=== PATIENT | female | born 1955 | race American Indian/Alaskan Native ===

== ENCOUNTER 2021-08-08 14:48 | Emergency (ER) | payer MEDICARE ==
--- NOTE | 2021-08-08 15:13 | Emergency Department Report ---
HPI - General Chief Complaint: Neuro Symptoms/Deficit Time Seen by Provider: 08/08/21 14:57 - HPI HPI: Room 18 The patient is a 65-year-old female present with a chief complaint of right- sided weakness. The daughter states she last spoke with the patient at 10: 52 this morning and the patient sounded like her normal self just complaining of a slight headache. The daughter then states she received a telephone call from her neighbor at 12: 26 stating that the patient is having difficulty speaking and could not move her right side. EMS was called and reportedly arrived 1 hour later. Daughter states EMS arrived on scene and did a stroke exam and initially stated they did not find any signs. However at 1405 was again noted that the patient had difficulty speaking and right-sided weakness ED Past Medical Hx - Past Medical History Hx Hypertension: Yes - Surgical History Additional Surgical History: - Family History Family history: no significant - Social History Smoking Status: Never Smoker Substance Use Type: None (Denies illicit drug) ED Review of Systems ROS: Stated complaint: Other details as noted in HPI Constitutional: no symptoms reported Eyes: denies: eye pain ENT: denies: throat pain Respiratory: no symptoms reported Cardiovascular: denies: chest pain Endocrine: no symptoms reported Gastrointestinal: denies: abdominal pain Genitourinary: denies: dysuria Musculoskeletal: denies: back pain Neurological: headache, weakness, other (Dysarthria) Physical Exam - Physical Exam Physical Exam: GENERAL: The patient is well-developed well-nourished female lying on stretcher somewhat emotionally distraught. [] HEENT: Normocephalic. Atraumatic. Extraocular motions are intact. Patient has moist mucous membranes. NECK: Supple. Trachea midline CHEST/LUNGS: Clear to auscultation. There is no respiratory distress noted. HEART/CARDIOVASCULAR: Regular. There is no tachycardia. There is no gallop rub or murmur. ABDOMEN: Abdomen is soft, nontender. Patient has normal bowel sounds. There is no abdominal distention. SKIN: There is no rash. There is no edema. There is no diaphoresis. NEURO: The patient is awake, alert, and oriented. The patient is cooperative. Cranial nerves II through XII grossly intact with exception of left facial droop and left cranial nerve #11. The patient has mild dysarthria. Patient able to hold right upper extremity at 45 degree angle for 10-second count without drift. Patient left upper extremity drifts down to her body before 10-second count. Patient is able to hold her right lower extremity at 30 degree angle for 5- second count without drift. The patient is able to hold her left lower extremity at 30 degree angle for 5-second count with some drift but it does not fall completely to the bed. Normal sensation to light touch throughout. NIHSS = 4 MUSCULOSKELETAL: There is no evidence of acute injury. ED Course - Consultations Consultation #1: 08/08/21 15:45 Case discussed with [id number] not recommend TPA at this time as patient is out of 4.5-hour window. Awaiting CTA and admit for CVA work-up Consultation #2: 08/08/21 16:30 [facility] called 08/08/21 16:56 Case discussed with [place] physician (Dr Diaz)- we will arrange transfer to [facility] 08/08/21 17:31 Patient will be transferred to [facility] ED Medical Decision Making - Lab Data Result diagrams: 08/08/21 15:12 08/08/21 15:12 Laboratory Tests 08/08/21 08/08/21 08/08/21 15:12 15:12 15:12 WBC 3.9 L RBC 4.28 Hgb 11.8 Hct 37.1 MCV 87 MCH 28 MCHC 32 RDW 14.5 Plt Count 140 Lymph % (Auto) 10.4 L [place] % (Auto) 10.1 H Eos % (Auto) 0.5 Baso % (Auto) 0.6 Lymph # (Auto) 0.4 L [place] # (Auto) 0.4 Eos # (Auto) 0.0 Baso # (Auto) 0.0 Seg Neutrophils % 78.4 H Seg Neutrophils # 3.1 PT 15.2 H INR 1.08 APTT 28.9 Thrombin Time Sodium 134 L Potassium 3.3 L Chloride 98.2 Carbon Dioxide 23 Anion Gap 16 BUN 15 Creatinine 0.6 Estimated GFR > 60 BUN/Creatinine Ratio 25 Glucose 107 H Calcium 8.6 Troponin T < 0.010 08/08/21 15:12 WBC RBC Hgb Hct MCV MCH MCHC RDW Plt Count Lymph % (Auto) [place] % (Auto) Eos % (Auto) Baso % (Auto) Lymph # (Auto) [place] # (Auto) Eos # (Auto) Baso # (Auto) Seg Neutrophils % Seg Neutrophils # PT INR APTT Thrombin Time 18.6 Sodium Potassium Chloride Carbon Dioxide Anion Gap BUN Creatinine Estimated GFR BUN/Creatinine Ratio Glucose Calcium Troponin T - EKG Data -: EKG Interpreted by Me EKG shows normal: sinus rhythm Rate: normal - EKG Data When compared to previous EKG there are: previous EKG unavailable Interpretation: other (No ischemic changes seen) - Radiology Data Radiology results: report reviewed (CT head, CTA brain, CTA neck), image reviewed (CT head, CTA brain, CTA neck) [facility] [address] [place] [address] Cat Scan Report Signed Patient: SIDRA GANT MR#: [id number] : 1955 Acct:[id number] Age/Sex: 65 / F ADM Date: 08/08/21 Loc: ED Attending Dr: Ordering Physician: HARI SANTANA MD Date of Service: 08/08/21 Procedure(s): CT head/brain wo con Accession Number(s): [id number] cc: HARI SANTANA MD CT head/brain wo con INDICATION / CLINICAL INFORMATION: 65 years Female; CODE STROKE CALL [phone] neuro deficits <6hrs or sx present upon awakening. TECHNIQUE: Routine CT head without contrast. All CT scans at this location are performed using CT dose reduction for ALARA by means of automated exposure control. C OMPARISON: None. FINDINGS: BRAIN / INTRACRANIAL CONTENTS: The motion and positioning degrade the image quality. However, there is decreased attenuation projected along the inferior right frontal lobe including the operculum concerning for evolving infarct given the history and correlation would be n eeded. There is otherwise mild to moderate cerebral white matter disease most oblique involving the periventricular regions and most consistent with microvascular angiopathy. The ventricular system is within normal limits in size and configuration. There is no clear CT evidence of acute intracranial hemorrhage or significant mass effect. ORBITS: No significant abnormality of visualized orbits. SINUSES / MASTOIDS: There is prominent opacification within the right maxillary sinus at. Mild mucosal thickening is seen along the inferior left maxillary sinus. CRANIOCERVICAL JUNCTION: No significant abnormality. ADDITIONAL FINDINGS: None. IMPRESSION: 1. The study is limited by motion. However, there appears to be relative decreased attenuation along the right frontal lobe and operculum concerning for edema and evolving infarct given the history and correlation would be needed. 2. 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 3. There is sinus inflammatory disease with near complete opacification of the right maxillary sinus. The study was specified as code stroke and called emergently to Dr. Santana in the ER at 2:23 PM Central standard time. However, attempts were unsuccessful. Signer Name: Rafita Burnham MD Signed: 08/08/2021 3:25 PM Workstation Name: [id number] Transcribed By: MR Dictated By: Rafita Burnham MD Electronically Authenticated By: Rafita Burnham MD Signed Date/Time: 08/08/21 152 DD/ 15 TD/TT: Print Cancel CT angio head INDICATION / CLINICAL INFORMATION: 65 years Female; NEURO DEFICITS 100 ML OMNI 350 . TECHNIQUE: Thin cut axial images obtained through t he head during IV bolus contrast administration. Sagittal, coronal, and 3 plane MIP reconstructions performed by the technologist. NASCET type criteria used evaluate stenoses. Automated exposure control utilized for radiation reduction purposes. COMPARISON: None available. FINDINGS: INTERNAL CAROTID ARTERIES: There is no significant focal stenosis involving intracranial ICAs by NASCET criteria. 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 There is also relative hypoplasia of the basilar artery without significant focal stenosis. CEREBRAL ARTERIES: There is origin of the posterior cerebral arteries bilaterally. There is no significant stenosis involving anterior cerebral arteries. On the accompanying noncontrast CT, there was suggestion of relative decreased attenuation within the inferior right frontal lobe operculum concerning for edema and evolving infarct at. There is no evidence of significant stenosis or large vessel occlusion involving the middle cerebral arteries or adjacent segments. In correlation would be needed in this patient with history of unspecified "neuro deficits". ANEURYSM: None identified. ADDITIONAL FINDINGS: There is near complete opacification of the right maxillary sinus. IMPRESSION: On the earlier CTA head, there was suggestion of subtle edema involving the inferior right frontal lobe at. However, there is no clear evidence of large vessel occlusion involving the more proximal right MCA branches. There is developmental origin of the posterior cerebral arteries and hypoplasia of the vertebral basilar system as described. The study was specified as stat and dictated emergently at 2:28 PM Central standard time. Signer Name: Rafita Burnham MD Signed: 08/08/2021 2:31 PM Workstation Name: [id number] CT angio neck INDICATION / CLINICAL INFORMATION: 65 years Female; NEURO DEFICITS 100 ML OMNI 350. TECHNIQUE: Thin cut axial images obtained through the head during IV bolus contrast administration. Sagittal, coronal, and 3 plane MIP reconstructions performed by the technologist. NASCET type criteria used evaluate stenoses. All CT scans at this location are performed using CT dose reduction for ALARA by means of automated exposure control. . COMPARISON: None available. FINDINGS: ARCH: Normal left for CAROTID ARTERIES: The visualized common and internal carotid arteries are widely patent. VERTEBRAL ARTERIES: Slight right dominant vertebral system seen. The nondominant left vertebral artery largely terminates in the left PICA territory. ADDITIONAL FINDINGS: Moderate opacification of the ethmoid seen. Mild mucosal thickening seen in the left sphenoid sinus. There is near complete opacification of the right maxillary antrum with air-fluid level. Moderate mucosal thickening seen in the left maxillary antrum. Disc disease seen at C4-5 which encroaches upon the cervical cord. No definitive impingement. Mild foraminal narrowing bilaterally at C6-7, related uncinate hypertrophy. Disc space narrowing seen at this level as well. Prominent, calcified nodes are seen in the mediastinum. There may be some mildly prominent, noncalcified lymph nodes, as well. Please clinically correlate. IMPRESSION: No significant stenosis appreciated on this CTA of the neck. Signer Name: Jamal Richards MD, III Signed: 08/08/2021 3:17 PM Workstation Name: [id number] - Differential Diagnosis CVA Critical care attestation.: If time is entered above; I have spent that time in minutes in the direct care of this critically ill patient, excluding procedure time. ED Disposition Clinical Impression: CVA (cerebral vascular accident) Disposition: 51 HOSPICE/MEDICAL FACILITY Is pt being admited?: No Does the pt Need Aspirin: No Condition: Fair Referrals: PRIMARY CARE, [Primary Care Provider] - 3-5 Days Time of Disposition: 17:34 (Awaiting transport)
[2021-08-08 15:21] LABS: Basophils % (Auto) 0.6 % (0.0-1.8); Eosinophils % (Auto) 0.5 % (0.0-4.3); Hematocrit 37.1 % (30.3-42.9); Hemoglobin 11.8 gm/dl (10.1-14.3); Lymphocytes # (Auto) 0.4 K/mm3 (1.2-5.4); Lymphocytes % (Auto) 10.4 % (13.4-35.0); Mean Corpuscular HGB Conc 32 % (30-34); Mean Corpuscular Volume 87 fl (79-97); Monocytes # (Auto) 0.4 K/mm3 (0.0-0.8); Monocytes % (Auto) 10.1 % (0.0-7.3); Platelet Count 140 K/mm3 (140-440); Red Blood Count 4.28 M/mm3 (3.65-5.03); Red Cell Distribution Width 14.5 % (13.2-15.2)
--- NOTE | 2021-08-08 15:30 | Cat Scan Report ---
CT head/brain wo con INDICATION / CLINICAL INFORMATION: 65 years Female; CODE STROKE CALL [phone] neuro deficits <6hrs or sx present upon awakening. TECHNIQUE: Routine CT head without contrast. All CT scans at this location are performed using CT dos e reduction for ALARA by means of automated exposure control. COMPARISON: None. FINDINGS: BRAIN / INTRACRANIAL CONTENTS: The motion and positioning degrade the image quality. However, there i s decreased attenuation projected along the inferior right frontal lobe including the operculum chris rning for evolving infarct given the history and correlation would be needed. There is otherwise mild to moderate cerebral white matter disease most oblique involving the perivent ricular regions and most consistent with microvascular angiopathy. The ventricular system is within n ormal limits in size and configuration. There is no clear CT evidence of acute intracranial hemorrhag e or significant mass effect. ORBITS: No significant abnormality of visualized orbits. SINUSES / MASTOIDS: There is prominent opacification within the right maxillary sinus at. Mild mucosa l thickening is seen along the inferior left maxillary sinus. CRANIOCERVICAL JUNCTION: No significant abnormality. ADDITIONAL FINDINGS: None. IMPRESSION: 1. The study is limited by motion. However, there appears to be relative decreased attenuation along the right frontal lobe and operculum concerning for edema and evolving infarct given the history and correlation would be needed. 2. There is otherwise mild to moderate microvascular angiopathy without clear CT evidence of acute in tracranial hemorrhage. 3. There is sinus inflammatory disease with near complete opacification of the right maxillary sinus. The study was specified as code stroke and called emergently to Dr. Anglin in the ER at 2:23 PM Central standard time. However, attempts were unsuccessful. Signer Name: Rafita Burnham MD Signed: 08/08/2021 3:25 PM Workstation Name: [id number]
[2021-08-08 15:35] LABS: Blood Urea Nitrogen 15 mg/dL (7-17); Calcium 8.6 mg/dL (8.4-10.2); Hemolysis Index 11
--- NOTE | 2021-08-08 15:35 | Cat Scan Report ---
CT angio head INDICATION / CLINICAL INFORMATION: 65 years Female; NEURO DEFICITS 100 ML OMNI 350 . TECHNIQUE: Thin cut axial images obtained through the head during IV bolus contrast administration. S agittal, coronal, and 3 plane MIP reconstructions performed by the technologist. NASCET type criteria used evaluate stenoses. Automated exposure control utilized for radiation reduction purposes. COMPARISON: None available. FINDINGS: INTERNAL CAROTID ARTERIES: There is no significant focal stenosis involving intracranial ICAs by NASC ET criteria. 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 There is also relative hypoplasia of the basilar artery without significant focal stenosis. CEREBRAL ARTERIES: There is origin of the posterior cerebral arteries bilaterally. There is no significant stenosis involving anterior cerebral arteries. On the accompanying noncontrast CT, there was suggestion of relative decreased attenuation within the inferior right frontal lobe operculum concerning for edema and evolving infarct at. There is no evid ence of significant stenosis or large vessel occlusion involving the middle cerebral arteries or alex cent segments. In correlation would be needed in this patient with history of unspecified "neuro defi cits". ANEURYSM: None identified. ADDITIONAL FINDINGS: There is near complete opacification of the right maxillary sinus. IMPRESSION: On the earlier CTA head, there was suggestion of subtle edema involving the inferior right frontal lo be at. However, there is no clear evidence of large vessel occlusion involving the more proximal righ t MCA branches. There is developmental origin of the posterior cerebral arteries and hypoplasia of the vertebra l basilar system as described. The study was specified as stat and dictated emergently at 2:28 PM Central standard time. Signer Name: Rafita Burnham MD Signed: 08/08/2021 3:31 PM Workstation Name: [id number]
[2021-08-08 15:37] LABS: INR 1.08 (0.87-1.13); Partial Thromboplastin Time 28.9 Sec. (24.2-36.6)
[2021-08-08 15:44] LABS: BUN/Creatinine Ratio 25
[2021-08-08] MEDS ORDERED: ASPIRIN 325 MG TAB PO ONE (15:46)
--- NOTE | 2021-08-08 15:49 | Consultation ---
History of Present Illness Consult date: 08/08/21 Medications and Allergies Allergies Allergy/AdvReac Type Severity Reaction Status Date / Time No Known Allergies Allergy Unverified 08/08/21 14:50 Physical Examination - Vital Signs Vital Signs: Vital Signs Pulse Ox 100 08/08/21 15:16 Results - Laboratory Findings CBC and BMP: 08/08/21 15:12 08/08/21 15:12 Abnormal Lab Findings: Abnormal Labs 08/08/21 08/08/21 08/08/21 15:12 15:12 15:12 WBC 3.9 L Lymph % (Auto) 10.4 L [place] % (Auto) 10.1 H Lymph # (Auto) 0.4 L Seg Neutrophils % 78.4 H PT 15.2 H Sodium 134 L Potassium 3.3 L Glucose 107 H Assessment and Plan [facility] Consult Note # Demographics Consult Type: Acute Stroke Level 1 (0-4.5 hrs) Patient Location: Emergency Room First Name: Mayra Last Name: Paddy Date of : 1955 Age: 65 Gender: Female Facility: [facility] Time of Initial Page (Eastern Time): 08/08/2021, 14:39 Time of Return Call (Eastern Time): 08/08/2021, 14:40 # HPI History: 65 yo woman with complaints of dizziness, left arm wasn't working, she laid down and couldn't get up with whole left-sided weakness. Symptoms resolved then returned then resolved again. Symptoms firs noticed at 10:00 or 11:0 0am. Initial NIHSS on my evaluation was 0 however upon second evaluation her NIHSS was 3 for left facial droop, left-arm weakness, and neurology Last Known Normal: I have collected independent history specific to time last normal or last known well. We have collaborated with the provider and at this time, we have the most current timeline with the information that is available. # Scores Time of exam and NIHSS (Eastern Time): 08/08/2021, 15:14 Level of Consciousness 1a: [0] = Alert; keenly responsive LOC Questions 1b: [0] = Answers both questions correctly LOC Commands 1c: [0] = Performs both tasks correctly Best Gaze 2: [0] = Normal Visual 3: [0] = No visual loss Facial Palsy 4: [1] = Minor paralysis Motor Arm Left 5a: [1] = Drift Motor Arm Right 5b: [0] = No drift Motor Leg Left 6a: [0] = No drift Motor Leg Right 6b: [0] = No drift Limb Ataxia 7: [0] = Absent Sensory 8: [0] = Normal Best Language 9: [0] = No aphasia Dysarthria 10: [1] = [id number] dysarthria Extinction and Inattention 11: [0] = No abnormality NIHSS Total: 3 # Exam Vitals: vital signs reviewed SBP: 176 DBP: 132 # PMH-FH-SH Past Medical History: hypertension Sarcoidosis Social History: non-smoker non-drinker Medications: Prednisone, HCTZ Allergies: NKDA # Data Head CT: no bleed per radiologist read ? right frontal hypodensity # Assessment Impression: Ischemic Stroke (Acute) Left-sided weakness consistent with acute stroke. TPA considered but given onset at between 10:00-11:00 and hypodensity seen on head CT I would not recommend IV tpa. # Plan Thrombolytic/Intervention: NOT IV Thrombolysis or IA Intervention candidate Thrombolytic Exclusion: > 4.5 hours Intraarterial Exclusion: other CTA results pending, call back if abnormal Target Blood Pressure: SBP < 220 Labs: hemoglobin A1c lipid panel Imaging: (urgency: routine): MRI Brain without contrast Diagnostic Test: echo with bubble study Therapy/Evaluation: NPO until swallow evaluation PT/OT evaluation speech/swallow consultation Medication: aspirin 81 mg daily clopidogrel (Plavix) 75 mg daily aspirin 81 mg PLUS clopidogrel (Plavix) 75 mg for 21 days, then monotherapy therafter start statin with goal of LDL < 70 DVT Prophylaxis: SCD chemical DVT prophylaxis Other: LDL < 70 permissive hypertension telemetry monitoring I have discussed my recommendations with the referring provider Disposition: admit # Logistics Telemedicine: Interactive 2 way audio and visual telecommunication technology was utilized during this visit
--- NOTE | 2021-08-08 16:22 | Cat Scan Report ---
CT angio neck INDICATION / CLINICAL INFORMATION: 65 years Female; NEURO DEFICITS 100 ML OMNI 350. TECHNIQUE: Thin cut axial images obtained through the head during IV bolus contrast administration. S agittal, coronal, and 3 plane MIP reconstructions performed by the technologist. NASCET type criteria used evaluate stenoses. All CT scans at this location are performed using CT dose reduction for ALAR A by means of automated exposure control. . COMPARISON: None available. FINDINGS: ARCH: Normal left for CAROTID ARTERIES: The visualized common and internal carotid arteries are widely patent. VERTEBRAL ARTERIES: Slight right dominant vertebral system seen. The nondominant left vertebral artery largely terminates in the left PICA territory. ADDITIONAL FINDINGS: Moderate opacification of the ethmoid seen. Mild mucosal thickening seen in the left sphenoid sinus. There is near complete opacification of the right maxillary antrum with air-flui d level. Moderate mucosal thickening seen in the left maxillary antrum. Disc disease seen at C4-5 which encroaches upon the cervical cord. No definitive impingement. Mild fo raminal narrowing bilaterally at C6-7, related uncinate hypertrophy. Disc space narrowing seen at thi s level as well. Prominent, calcified nodes are seen in the mediastinum. There may be some mildly prominent, noncalcif ied lymph nodes, as well. Please clinically correlate. IMPRESSION: No significant stenosis appreciated on this CTA of the neck. Signer Name: Jamal Richards MD, III Signed: 08/08/2021 4:17 PM Workstation Name: [id number]
[2021-08-08] MEDS ORDERED: POTASSIUM CHLORIDE ER 20 MEQ TAB PO ONE (16:57)
[2021-08-08 19:12] VITALS: BP 166/92
--- NOTE | 2021-08-09 17:31 | Electrocardiograph Report ---
[facility] Test Date: 2021-08-08 Test Time: 15:49:13 Pat Name: SIDRA GANT Department: Room: Gender: F Manager Agricultural: [place] [id number] : 1955 Requested By: HARI SANTANA Order Number: [id number] Reading MD: Jenni Alvarez Measurements Intervals [place] Rate: 84 P: 68 LA: 149 QRS: 45 QRSD: 83 T: 28 QT: 405 QTc: 479 Interpretive Statements Sinus rhythm Nonspecific ST changes No previous ECG available for comparison Electronically Signed On 08-09-2021 17:30:55 EST by Jenni Alvarez
== END 2021-08-08 19:12 | disposition hospice, inpatient (51) ==
LOC: ED 14:48
DX: I63.9 Cerebral infarction, unspecified (principal); I10 Essential (primary) hypertension; Z98.890 Other specified postprocedural states
CPT/HCPCS: 36415; 70450; 70496; 70498; 80048; 84484; 85025; 85610; 85670; 85730; 93005; 99285; Q9967